=== PATIENT | female | born 1980 | race Caucasian/White ===

== ENCOUNTER 2020-07-31 07:42 | Emergency (ER) | payer BC, SELFPAY ==
[2020-07-31 07:54] VITALS: BP 137/93; PULSE 71; RESP 18; TEMP 36.8; O2SAT 98; BMI 37.5
--- NOTE | 2020-07-31 07:56 | W.ED.ABDPA2 ---
HPI - Abdominal Pain General: Chief Complaint: Abdominal Pain Stated Complaint: Poss Gallbladder Attack/ABD Pain Time Seen by Provider: 07/31/20 07:55 History of Present Illness: HPI narrative: 39-year-old female complaint of epigastric and right upper quadrant abdominal pain. She states some green onion she ate last night seem to trigger it she has had nausea and vomiting throughout the night as well as diarrhea she has had these attacks before usually less intense she does get acholic stools them at times as well. States she has had gallbladder problems for 15 years has known cholelithiasis but has not had her gallbladder out. She denies any other previous abdominal surgeries. No fever no hematochezia melena hematemesis or coffee-ground emesis. MD elicited complaint: abdominal pain Pertinent past history: other (Per patient she has a history of cholelithiasis) Onset (ago): hour(s) Pain Consistency: constant Location: Epigastric and RUQ Severity: severe Quality: cramping and stabbing Radiation: back Migration to: RUQ Exacerbating factors: eating and vomiting Associated Symptoms: Reports anorexia, bloating, change in bowel habits, change in stool character, GI cramping, diarrhea, nausea and vomiting; Denies belching, chills, coffee ground emesis, constipation, dyspepsia, dysuria, excessive flatus, fever(s), heartburn, hematochezia, hematuria, hematemesis, fecal incontinence, loose stools, melena, poor appetite and syncope Review of Systems Const: Denies: fever(s) or chills ENMT: Denies: throat pain, ear or mastoid pain, nasal discharge or nasal congestion Card: Denies: syncope Resp: Denies: dyspnea, productive cough or non-productive cough GI: Reports: nausea, vomiting, diarrhea, bloating, GI cramping, change in bowel habits and change in stool character; Denies: hematemesis, coffee ground emesis, heartburn, constipation, belching, excessive flatus, fecal incontinence, hematochezia or melena : Denies: dysuria or hematuria Skin/Breast: Denies: rash or pruritus Physical Exam Const: COMMON NORMALS: no acute distress GENERAL APPEARANCE: cooperative and comfortable ORIENTATION/CONSCIOUSNESS: Yes awake, Yes oriented to person, Yes oriented to place and Yes oriented to time HENMT: COMMON NORMALS: normocephalic, atraumatic, hearing grossly normal bilaterally, external ears normal, EAC's normal, TM's normal bilaterally, Normal nasal mucous membranes and turbinates present, moist oral mucous membranes and oropharynx normal HEAD & SCALP: normocephalic and atraumatic NOSE: Normal nasal mucous membranes and turbinates present EXTERNAL EAR: Yes external ears normal EXTERNAL AUDITORY CANAL: EAC's normal TYMPANIC MEMBRANE: TM's normal bilaterally Neck/C-Spine: COMMON NORMALS: no JVD Resp: COMMON NORMALS: normal respiratory effort, No retractions, No use of accessory muscles and clear to auscultation bilaterally AUSCULTATION: clear to auscultation bilaterally Cardio: COMMON NORMALS: no JVD, regular rate, regular rhythm and No murmurs present (Cardio) RATE: regular rate RHYTHM: regular rhythm GI: COMMON NORMALS: Soft to palpation and No hepatosplenomegaly present AUSCULTATION: Yes normoactive bowel sounds PALPATION: Yes Soft to palpation, Yes Tenderness to palpation present (GI) (Positive Sepulveda sign) Details: RUQ, No Guarding due to palpation present (GI) and Yes No hepatosplenomegaly present Extremity: COMMON NORMALS: normal to inspection, capillary refill normal, no clubbing, cyanosis or edema, no calf tenderness and no pedal edema Neuro: SENSORIUM/ORIENTATION: Yes oriented to person, Yes oriented to place and Yes oriented to time Skin: COMMON NORMALS: no rashes or lesions noted GENERAL SKIN EXAM: no rashes or lesions noted Course Vital Signs: Vital signs: Vital Signs Temperature 98.2 F 07/31/20 07:54 Pulse Rate 60 07/31/20 08:27 Respiratory Rate 18 07/31/20 08:27 Blood Pressure 134/89 07/31/20 08:27 Pulse Oximetry 99 07/31/20 08:28 MDM - Abdominal Pain MDM Narrative: Medical decision making narrative: Reviewed imaging with the patient. There is a comment previously about potential thickened gallbladder wall she has that again today but there is no real convincing evidence of cholecystitis. She has normal white count and normal liver functions and T bili. I suspect she has incidental gallstones and probably has biliary dyskinesia as the actual cause of her pain which would explain why she has had this for such an extended period of time and has not yet had her gallbladder out. Discharged home with hydrocodone Zofran PPI and strict instructions on a clear liquid diet. Follow-up with general surgery after getting a HIDA scan. If she has worsening symptoms return to the emergency room. Rest the importance of a very bland diet after 48 hours of clear liquids. Lab Data: Labs: Lab Results 07/31/20 07/31/20 07/31/20 Range/Units 08:15 08:15 08:15 WBC 8.9 (4.0-10.0) 10^3/ uL RBC 4.86 (4.1-5.3) 10^6/u L Hgb 13.1 (11.5-15.3) g/dL Hct 41.9 (37.0-47.0) % MCV 86.2 (81-99) fL MCH 27.0 L (28.0-34.0) pg MCHC 31.3 (30.0-36.0) g/dL RDW 13.6 (12.1-15.1) % Plt Count 265 (130-400) 10^3/c mm MPV 11.2 H (7.4-10.4) fL Neut % (Auto) 76.1 % Lymph % (Auto) 16.4 % [place] % (Auto) 5.7 % Eos % (Auto) 1.3 % Baso % (Auto) 0.4 % Neut # (Auto) 6.75 (1.8-7.7) 10^3/u L Lymph # (Auto) 1.5 (0.8-4.8) 10^3/u L [place] # (Auto) 0.5 (0.2-0.9) 10^3/u L Eos # (Auto) 0.1 (0.0-0.8) 10^3/u L Baso # (Auto) 0.0 (0.0-0.1) 10^3/u L Nucleated RBC % (a uto) 0 % Nucleated RBCs # 0.0 /100WBC Sodium 136 (136-145) mmol/L Potassium 4.0 (3.5-5.1) mmol/L Chloride 101 (98-107) mmol/L Carbon Dioxide 26 (22-29) mmol/L Anion Gap 13.0 (5-19) BUN 11 (6-20) mg/dL Creatinine 0.6 (0.5-0.9) mg/dL GFR Calculation 111.9 (90-130) mL/min Glucose 114 (65-115) mg/dL Calcium 8.9 (8.5-10.5) mg/dL Total Bilirubin 0.3 (0.15-1.2) mg/dL AST 14 (0-32) U/L ALT 8 (0-33) U/L Total Protein 7.2 (6.6-8.7) g/dL Albumin 4.1 (3.5-5.2) g/dL Globulin 3.1 (1.3-4.6) g/dL Lipase 17 (13-60) U/L Urine Color Yellow (Yellow) Urine Appearance Clear (CLEAR) Urine pH 8 H (5-7) Ur Specific Gravit y 1.015 (1.005-1.030) Urine Protein Neg (Negative) Urine Glucose (UA) Norm (Normal) Urine Ketones Negative (Negative) Urine Blood Neg (Negative) Urine Nitrate Negative (Negative) Urine Bilirubin Neg (Negative) Prot Sulfosalicyli c Acd Negative (Negative) Urine Urobilinogen Norm (Negative) mg/dL Ur Leukocyte Shelby ase Negative (Negative) Discharge Plan Discharge Patient Disposition: Home Clinical Impression: Biliary dyskinesia Condition: Stable Prescriptions: New hydrocodone-acetaminophen 5-325 mg tablet 1 tab PO Q6H PRN (Reason: pain) Qty: 20 RF: 0 Zofran 4 mg tablet 4 mg PO Q6H PRN (Reason: nausea and vomiting) Qty: 20 RF: 0 omeprazole 20 mg capsule,delayed release(DR/EC) 20 mg PO BID 30 Days Qty: 60 RF: 0 Discharge Orders: Discharge ED (Routine); Ordered 07/31/20 Ordered By: Shai Nolan Discharge Diet: Clear Liquid Activity Restrictions/Additional Instructions: Case management will call with an appointment for HIDA scan and referral to general surgery. Clear liquid diet for 24 to 48 hours then bland diet until you follow-up with surgery. Coding Level of Care Code ED Manager Clinical Research for [facility] Fwd Exam Comprehensive
--- NOTE | 2020-07-31 08:11 | USR_ITS ---
PROCEDURE INFORMATION: Exam: US Abdomen, Limited; Right Upper Quadrant Exam date and time: 07/31/2020 8:14 AM Age: 39 years old Clinical indication: Abdominal pain; Additional info: Ruq pain TECHNIQUE: Imaging protocol: US abdomen. Real time ultrasound with image documentation. Limited exam focused on the right upper quadrant. COMPARISON: US gall bladder [id number] 06/01/2017 10:15 AM FINDINGS: Liver: Homogeneous appearance of the liver. Longitudinal liver diameter 13.9 cm. Possible fatty infiltration with increased echogenicity. Gallbladder: Large gallstone at the gallbladder neck. The gallbladder is elongated measuring 11.1 cm. Borderline gallbladder wall thickness at the upper limits of normal or slightly thickened. A 2.1 cm calculus remains near the level of the gallbladder neck. Common bile duct: Common bile duct diameter 0.48 cm. Pancreas: Limitation by overlapping bowel gas. Limited definition of the distal pancreas. Right kidney: The right kidney measures 12.5 cm longitudinally with right cortical thickness 1.3 cm. Aorta: Abdominal aorta proximally measures 1.9 cm. Mid aorta diameter 1.7 cm. Inferior vena cava: Inferior vena cava diameter 2.4 cm. Intraperitoneal space: Positive Sepulveda sign subjectively with discomfort in the epigastric and right upper quadrant with imaging. US/US gall bladder [id number] IMPRESSION: 1. Cholelithiasis with possible acute or chronic cholecystitis with borderline or mildly thickened gallbladder wall. The gallbladder wall is mildly accentuated compared to the prior ultrasound of 06/01/2017. 2. Fatty infiltration of the liver.
[2020-07-31] MEDS: morphine 4 mg/mL SDV 1 mL IVP (08:25)
[2020-07-31] MEDS: ondansetron 2 mg/ML SDV 2 mL 4 MG IVP (08:25)
[2020-07-31 08:27] VITALS: BP 134/89; PULSE 60; RESP 18; O2SAT 98
[2020-07-31 08:28] VITALS: O2SAT 99
[2020-07-31 08:28] LABS: Basophils % 0.4 %; Eosinophils # 0.1 10^3/uL (0.0-0.8); Eosinophils % 1.3 %; Hematocrit 41.9 % (37.0-47.0); Hemoglobin 13.1 g/dL (11.5-15.3); Lymphocytes # 1.5 10^3/uL (0.8-4.8); Lymphocytes % 16.4 %; Mean Corpuscular HGB Conc 31.3 g/dL (30.0-36.0); Mean Corpuscular Volume 86.2 fL (81-99); Mean Platelet Volume 11.2 fL (7.4-10.4); Monocytes # 0.5 10^3/uL (0.2-0.9); Monocytes % 5.7 %; Neutrophils # 6.75 10^3/uL (1.8-7.7); Neutrophils % 76.1 %; Nucleated Red Blood Cells % 0 %; Platelet Count 265 10^3/cmm (130-400); Red Blood Count 4.86 10^6/uL (4.1-5.3); Red Cell Distribution Width 13.6 % (12.1-15.1); White Blood Count 8.9 10^3/uL (4.0-10.0)
[2020-07-31 08:35] LABS: Add Urine Microscopic? NO
[2020-07-31 08:37] LABS: Specific Gravity, Urine 1.015 (1.005-1.030); Urine Appearance Clear (CLEAR); Urine Color Yellow (Yellow); pH Urine 8 (5-7)
[2020-07-31 08:38] LABS: Bilirubin Urine Neg (Negative); Blood Urine Neg (Negative); Glucose Urine UA Norm (Normal); Ketones Urine Negative (Negative); Leukocyte Esterase Urine Negative (Negative); Nitrate Urine Negative (Negative); Protein Urine Neg (Negative); Sulfosalicylic Acid Urine Negative (Negative); Urobilinogen Urine Norm (Negative)
[2020-07-31 08:48] LABS: Alanine Aminotransferase 8 U/L (0-33); Albumin Level 4.1 g/dL (3.5-5.2); Alkaline Phosphatase 106 IU/L (35-105); Aspartate Amino Transferase 14 U/L (0-32); Blood Urea Nitrogen 11 mg/dL (6-20); Calcium 8.9 mg/dL (8.5-10.5); Carbon Dioxide 26 mmol/L (22-29); Chloride 101 mmol/L (98-107); Globulin 3.1 g/dL (1.3-4.6); Glomerular Filtration Rate 111.9 mL/min (90-130); Glucose 114 mg/dL (65-115); Lipase 17 U/L (13-60); Osmolality Calculated 282 mOsm/kg (285-295); Sodium 136 mmol/L (136-145); Total Bilirubin 0.3 mg/dL (0.15-1.2); Total Protein 7.2 g/dL (6.6-8.7)
[2020-07-31 09:27] VITALS: BP 150/89; PULSE 65; RESP 18; O2SAT 100
[2020-07-31 09:48] VITALS: BP 150/89; PULSE 65; RESP 18; O2SAT 100
--- NOTE | 2020-08-02 16:04 | DCPLANNER ---
Addendum entered by Joya Aguayo 08/03/20 11:57: General Surgery contacted case management manager stating that patient is being seen by Dr. Parada. [employer] manager called the office of Dr. Parada, spoke with Viridiana, patient is being seen 08.03.20 at 1:[address] Parada. Clinic contacted patient with appointment information. [employer] manager did tell clinic that a HIDA scan had been ordered for patient, and that the results were going to be sent to Dr. Patel office. Addendum entered by Joya Aguayo 08/02/20 16:10: [employer] manager also needed to schedule a followup appointment for patient with general surgery. [employer] manager emailed both Sandhya and Maritza patients information. Patients information will be printed and reviewed. Clinic will call patient with appointment information. Original Note: [employer] manager had message to schedule an outpatient hida scan for patient. [employer] manager faxed an order for the hida scan to centralized scheduling. [employer] manager will call for appointment information.
--- NOTE | 2020-08-06 11:25 | DCPLANNER ---
Patient attended appointment scheduled for 08.03.[address] Parada.
--- NOTE | 2020-08-11 13:26 | DCPLANNER ---
Patient had a follow up appointment scheduled for 08.03.[address] Parada - patient did attend appointment. food beverage manager had ordered a HIDA scan for patient, was told by Viridiana at Dr. Patel office that patient did not need the HIDA scan at this time, due to patient being scheduled for surgery. food beverage manager called centralized scheduling, spoke with Zohra, asked for scheduling to cancel the HIDA scan.
== END 2020-07-31 09:48 | disposition home or self-care (01) ==
PROVIDERS: Emergency Provider Family Medicine
DX: K82.8 Other specified diseases of gallbladder (principal)
CPT/HCPCS: 12345; 76705; 80053; 81003; 83690; 85025; 96374; 96375; 99283; J2270; J2405

== ENCOUNTER → 2020-08-08 17:07 | Outpatient (BNVA) | payer BC, SELFPAY | PROVIDERS: Visit Provider Surgery | DX: Z20.828 Contact with and (suspected) exposure to other viral communicable diseases (principal) | CPT/HCPCS: 87635 ==

== ENCOUNTER 2020-08-12 06:18 | Day surgery (SDC) | payer BC, SELFPAY ==
[2020-08-11 12:54] VITALS: BMI 39.1
[2020-08-12] VITALS (13 sets, daily range): BP systolic 119–154; BP diastolic 64–91; PULSE 60–98; RESP 13–19; TEMP 36.8–37.1; O2SAT 91–98
[2020-08-12] MEDS: sodium chloride 0.9% 1,000 ML 30 ML IV (07:09)
--- NOTE | 2020-08-12 07:43 | W.PM.OPSUD ---
Surgery/Procedure H&P Update DATE OF PROCEDURE: August 12, 2020 DATE H&P PERFORMED: 08/03/20 H&P UPDATE INFORMATION: No changes to prior documentation PLANNED PROCEDURE: Operation Date: 08/12/20 08:05 Proposed Procedures p Laparoscopic Cholecystectomy 28899(Not Applicable) - Ziggy Parada MD
[2020-08-12 07:47] LABS: Alanine Aminotransferase < 5 U/L (0-33); Alkaline Phosphatase 112 IU/L (35-105); Aspartate Amino Transferase 12 U/L (0-32); Globulin 3.2 g/dL (1.3-4.6); Total Bilirubin 0.3 mg/dL (0.15-1.2); Total Protein 7.2 g/dL (6.6-8.7)
[2020-08-12 07:52] LABS: OR HCG Qualitative Urine Negative (Negative)
--- NOTE | 2020-08-12 08:00 | ANES.PREANE2 ---
Pre-Anesthetic Assessment Pre-Anesthetic Assessment: Height/Weight: Height 1.7 m Weight 113.398 kg Temp Pulse Resp BP Pulse Ox 98.2 F 68 16 139/64 97 08/12/20 06:38 08/12/20 06:38 08/12/20 06:38 08/12/20 06:38 08/12/20 06:38 Preop Diagnosis: cholilithiasis Proposed Procedure: Operation Date: 08/12/20 08:05 Proposed Procedures p Laparoscopic Cholecystectomy 91085(Not Applicable) - Ziggy Parada MD Was Beta Zack taken within 24 hours: N/A Last intake: Intake Last Liquid Date 08/12/20 Last Liquid Time 22:00 Last Solid Date 08/12/20 Last Solid Time 22:00 Social: Social History: No alcohol and No tobacco Exam: Pre-Anes Outpt Exam: alert, oriented x 3, clear to auscultation bilaterally and regular rate & rhythm Additional Exam Findings (including area of procedure): patient states that she metabolizes medications very fast and/or requires more to get the normal therapeutic response Airway: Submandibular: WNL Cervical ROM: WNL MP: 1 History/ROS: No significant history except as noted Pulmonary: Pulmonary: None reported CV/HEM: CV/HEM: Anemia : : None reported Hepatic: Hepatic: None reported GI: GI: GERD (gastritis) Metabolic: Metabolic: None reported Comments: polycystic ovarian syndrome Musc/skel: Musc/skel: None reported Neuropsych: Neuropsych: None reported Anesthetic Plan: ASA status: 1 Anesthesia: Anesthesia Evaluation and General Risk of > 500 ml blood loss (7ml/kg in children): No Meds/Allergies Current Medications: Current Medications Generic Name Dose Route Start Last Admin Trade Name Freq PRN Reason Stop Dose Admin Sodium Chloride 1,000 mls @ 30 ml s/hr 08/12/20 07:00 08/12/20 07:09 Sodium Chloride 0.9% IV 30 mls/hr .Q24H JOE Administration Data Anesthesia Other Labs: Laboratory Results - last 48 hr 08/12/20 08/12/20 07:02 07:49 Total Bilirubin 0.3 Direct Bilirubin 0.20 AST 12 ALT < 5 Alkaline Phosphatase 112 H Total Protein 7.2 Albumin 4.0 Globulin 3.2 Urine HCG, Qual Negative Cardiac Studies: No Data to Display
--- NOTE | 2020-08-12 08:56 | P.OP_ITS ---
Operative Report Date of procedure: August 12, 2020 Pre-op Diagnosis: Symptomatic cholelithiasis. Post-op Diagnosis: Same, with extensive changes of chronic cholecystitis. Procedure Done: Laparoscopic cholecystectomy. Specimens removed/disposition: Gallbladder. Surgeon: Ziggy Parada Anesthesia: General Estimated blood loss (mL): 10 Complications: None. Condition: stable Disposition: PACU Procedure: The patient was brought to the Operating Room and was placed in a supine position on the Operating Room table. General endotracheal anesthesia was induced. The abdomen was prepped and draped in a sterile fashion. A small vertical incision was carried out in the inferior aspect of the umbilicus. Blunt dissection was carried out down to the fascia, which was grasped with a Perez clamp. A stay suture of 0 Vicryl was placed on either side of the midline and the midline fascia was incised. The underlying peritoneum was opened bluntly and the Mendoza port was placed directly into the peritoneal cavity and was held in place with the inflatable balloon. The peritoneal cavity was insufflated with carbon dioxide. The laparoscope was used to inspect the abdominal cavity. No gross abnormalities were initially noted. A 5 millimeter port was placed in the epigastrium under direct vision. Two 5-millimeter ports were placed on the right side of the abdomen under direct vision. The gallbladder was grasped and was elevated. At this point it could be seen that the patient had some chronic and subacute adhesions to the gallbladder wall. These extended all the way down to the infundibular region and were taken down using blunt dissection and cautery to maintain hemostasis. Blunt dissection and hydrodissection were carried out in the infundibular region of the gallbladder and the cystic duct and cystic artery were identified. The gallbladder was partially removed from the liver bed using cautery and the spatula to confirm the anatomy before the structures were clipped and divided. The gallbladder was then removed from the liver bed using cautery and the spatula. The patient had extensive changes of chronic inflammation in the plane between the gallbladder and the liver bed, obliterating the plane in areas. After the gallbladder had been removed from the liver bed, the laparoscope was moved to the epigastric port and the gallblad rico was removed from the peritoneal cavity through the umbilical port site after being placed in a laparoscopic bag. The stay sutures of Vicryl were tied to each other at the umbilicus, closing the defect so that it was airtight. The perihepatic spaces were irrigated with saline and the liver bed was reinspected. No ongoing problems were seen. The remaining ports were removed from the abdominal wall and the pneumoperitoneum was evacuated. All skin incisions were closed using inverted interrupted sutures of 4-0 Vicryl. Benzoin and Steri-Strips were placed over the incisions and Band-Aids followed. The patient was taken to the Recovery Area in stable condition postoperatively.
[2020-08-12] MEDS: ondansetron 2 mg/ML SDV 2 mL 4 MG IVP ×2 (09:15→09:57)
--- NOTE | 2020-08-12 19:27 | ANE.PACU2 ---
Inpatient post-anesthesia follow up: Airway intact: Yes Vital signs: Temperature 98.4 F Pulse Rate 74 Respiratory Rate 16 Blood Pressure 133/75 Pulse Oximetry 95 Oxygen Delivery Me thod Room Air Oxygen Flow Rate 6 Fraction of Inspir ed Oxygen Hydration adequate: Yes Nausea and vomiting: No Pain level: 2 Mental status: Baseline
== END 2020-08-12 13:40 | disposition home or self-care (01) ==
PROVIDERS: Anesthesiology; Visit Provider Surgery
PROC: 0FT44ZZ Resection of Gallbladder, Percutaneous Endoscopic Approach (ICD-10-PCS; CPT 47562; principal; 2020-08-12 08:05)
DX: K80.10 Calculus of gallbladder with chronic cholecystitis without obstruction (principal); K21.9 Gastro-esophageal reflux disease without esophagitis; E28.2 Polycystic ovarian syndrome
CPT/HCPCS: 47562; 12345; 36415; 80076; 81025; 84703; 88304; 96365; J0690; J1100; J1170; J1885; J2250; J2405; J3010; J3490; J7030